=== PATIENT | female | born 1945 | race Caucasian/White ===

== ENCOUNTER → 2025-07-10 12:10 | Outpatient (REF) | payer MEDICARE, OTHER, SELFPAY | LOC: RAD 12:10 | PROVIDERS: ATTENDING PHYSICIAN Family Medicine | DX: M25.551 Pain in right hip (principal) | CPT/HCPCS: 73502 ==

== ENCOUNTER 2025-07-22 16:31 | Emergency (ER) | payer MEDICARE, OTHER, SELFPAY ==
[2025-07-22 16:41] VITALS: BP 155/80
[2025-07-22 17:01] LABS: Hematocrit 42.5 % (37.0-47.0); Hemoglobin 14.9 g/dL (12.0-16.0); Mean Corp Hgb Conc. 35.1 g/dL (33.0-37.0); Mean Corpuscular Volume 92.6 fL (81.0-99.0); Nucleated Red Blood Cells % 0 %; Platelet Count 195 10^3/uL (130-400); Red Cell Dist. Width 13.3 % (11.5-14.5)
[2025-07-22 17:14] LABS: COVID-19 Antigen Negative (Negative)
[2025-07-22 17:21] LABS: ALT (SGPT) 20 U/L (0-35); AST (SGOT) 25 U/L (14-36); Albumin 4.6 g/dl (3.5-5.0); Alkaline Phosphatase 94 U/L (38-126); Blood Urea Nitrogen 11 mg/dl (7-17); Calcium 9.4 mg/dl (8.4-10.2); Carbon Dioxide 29 mmol/L (22-30); Chloride 102 mmol/L (98-107); Glucose 105 mg/dl (70-99); Potassium 4.1 mmol/L (3.5-5.1); Sodium 137 mmol/L (135-145); Total Protein 7.5 g/dl (6.3-8.2); eGFR > 60.00
[2025-07-22 17:24] LABS: Troponin I < 0.012 ng/ml
[2025-07-22 18:11] VITALS: BP 133/72
[2025-07-22 19:00] VITALS: BP 149/96
--- NOTE | 2025-07-22 19:25 | ED.GENMED ---
History of Present Illness
<Palmira Guzman MD, Resident - Last Filed: 07/22/25 22:42>
General
Chief Complaint: Dizziness
Source: patient and family
Exam Limitations: none
Time Seen by Provider: 07/22/25 19:07
Nursing documentation reviewed up to this point in time: agreed with
History of Present Illness
History of Present Illness:
79yo F with a hx of epilepsy and hypothyroidism who presents with acute onset dizziness this am.
Pt reports that about 5 days ago she had a URI with cough and congestion. Denies any sensation of fullness in either ear or feeling of hearing being underwater/ears popped, but states that she felt that her R ear felt a bit moist and that her eyes
have been watering more than usual. Congestion has improved over past week. However, this am she woke up and felt very dizzy and lightheaded. Got out of bed and was unable to put toothpaste on her toothbrush because her vision was too blurry. Denies
any dysmetria. Denies diplopia. Throughout the day, the dizziness persisted. It is improved with sitting up and exacerbated by lying supine. It is also worsened by tilting head forward. No impact of turning head side to side. States that she feels
wobbly while walking, off balance; denies any falls. Denies n/v. Denies any changes in hearing or ear discomfort. States she had an episode like this years ago that was attributed to an ear infection. Denies LEE or palpitations. Pt states she hasn't
eaten or drank since this am.
Past History
<Palmira Guzman MD, Resident - Last Filed: 07/22/25 22:42>
Past History
ED Past Medical History: Hypercholesterolemia, Seizures and Hypothyroidism
Social History
Living: with family
Review of Systems
<Palmira Guzman MD, Resident - Last Filed: 07/22/25 22:42>
Review of Systems
Allergies reviewed?: No
All Other Systems: ROS reviewed and negative except as documented in HPI and ROS
Constitutional: Reports no symptoms
EENT: Reports runny nose
Respiratory: Reports no symptoms
Cardiac: Reports no symptoms
ABD/GI: Reports no symptoms
: Reports no symptoms
Musculoskeletal: Reports no symptoms
Skin: Reports no symptoms
Neurological: Reports dizzy
Psychiatric: Reports no symptoms
Phy Exam
<Palmira Guzman MD, Resident - Last Filed: 07/22/25 22:42>
General Physical Exam
General Presentation: mild distress
General age: appears stated age
General Skin: warm and dry
General Habitus: normal
General Mental: alert
ENT Exam
ENT Exam: EOMI and TM's normal
Eye Exam
Eye Exam: PERRL, EOMI and other (eyes red-rimmed and watery with clear tearing )
Cardiovascular Exam
Cardiovascular Exam: regular rate/rhythm and no edema
Heart Sounds: normal
Pulmonary Exam
Pulmonary Exam: no respiratory distress
Gastrointestinal Exam
Gastrointestinal Exam: non distended
Neurological Exam
Neurological Exam: alert, speech normal and other (no nystagmus, no dysmetria in bilat UE )
Skin Exam
Skin Exam: normal color and warm/dry
Psychiatric Exam
Psychiatric Exam: normal mood/affect
Course
<Palmira Guzman MD, Resident - Last Filed: 07/22/25 22:42>
Orders/Labs/Results
Orders:
Orders
07/22/25 16:33
EKG [Electrocardiogram (*1)] Urgent
Reason for Study: Vertigo / Dizzy
EKG- Treatment ONCE
07/22/25 16:47
COVID-19 Antigen Urgent
Source: Nasal Swab
INF RAPID [Influenza A+B Rapid Molecular] Urgent
BINH Source: Nasal Swab
Specimen Description:
07/22/25 16:52
CBC/With Diff [Complete Blood Count/With Diff] Urgent
CMP [Comprehensive Metabolic Panel] Urgent
Troponin I Urgent
07/22/25 19:45
Meclizine [Antivert] 12.5 mg PO NOW STA
Abnormal Lab Results
07/22/25
16:52
WBC 4.0 L 10^3/uL
(4.8-10.8)
MCH 32.5 H pg
(27.0-31.0)
MPV 10.6 H fL
(7.4-10.4)
Absolute Lymphs (auto) 1.0 L 10^3/uL
(1.2-3.4)
Monocytes % 11.8 H %
(1.7-9.3)
Glucose 105 H mg/dl
(70-99)
07/22/25 16:52
07/22/25 16:52
Vital Signs
Initial and Last Documented VS:
Initial Vital Signs
Temp Pulse Resp BP Pulse Ox
98.2 F 77 15 155/80 97
07/22/25 16:41 07/22/25 16:41 07/22/25 16:41 07/22/25 16:41 07/22/25 16:41
Last Documented Vital Signs
Temp Pulse Resp BP Pulse Ox
98.2 F 77 15 136/68 93
07/22/25 16:41 07/22/25 20:00 07/22/25 20:00 07/22/25 20:00 07/22/25 20:00
Akbarlt;Al Barney, DO - Last Filed: 07/22/25 19:52>
Orders/Labs/Results
Orders:
Orders
07/22/25 16:33
EKG [Electrocardiogram (*1)] Urgent
Reason for Study: Vertigo / Dizzy
EKG- Treatment ONCE
07/22/25 16:47
COVID-19 Antigen Urgent
Source: Nasal Swab
INF RAPID [Influenza A+B Rapid Molecular] Urgent
BINH Source: Nasal Swab
Specimen Description:
07/22/25 16:52
CBC/With Diff [Complete Blood Count/With Diff] Urgent
CMP [Comprehensive Metabolic Panel] Urgent
Troponin I Urgent
07/22/25 19:45
Meclizine [Antivert] 12.5 mg PO NOW STA
Abnormal Lab Results
07/22/25
16:52
WBC 4.0 L 10^3/uL
(4.8-10.8)
MCH 32.5 H pg
(27.0-31.0)
MPV 10.6 H fL
(7.4-10.4)
Absolute Lymphs (auto) 1.0 L 10^3/uL
(1.2-3.4)
Monocytes % 11.8 H %
(1.7-9.3)
Glucose 105 H mg/dl
(70-99)
07/22/25 16:52
07/22/25 16:52
Vital Signs
Initial and Last Documented VS:
Initial Vital Signs
Temp Pulse Resp BP Pulse Ox
98.2 F 77 15 155/80 97
07/22/25 16:41 07/22/25 16:41 07/22/25 16:41 07/22/25 16:41 07/22/25 16:41
Last Documented Vital Signs
Temp Pulse Resp BP Pulse Ox
98.2 F 77 15 136/68 93
07/22/25 16:41 07/22/25 20:00 07/22/25 20:00 07/22/25 20:00 07/22/25 20:00
<Palmira Guzman MD, Resident - Last Filed: 07/22/25 22:42>
MDM/Problems Addressed
Differential Diagnosis Includes:
Ddx:
Vestibular neuritis (in s/o recent URI)
BPPH (exacerbated by tilting head down)
Less likely:
Otitis media (no sx, TMs clear on exam)
Cardiogenic etiology (EKG, trop negative)
Central vertigo in s/o cerebellar stroke (no vertical or shifting nystagmus, no focal neuro deficits, no dysmetria)
MDM/Problems Addressed:
- Meclizine
- CT head if sx do not improve w meclizine admin
- EKG, trops
- CBC, CMP
<Palmira Guzman MD, Resident - Last Filed: 07/22/25 22:42>
*Pulse Oximetry
SaO2: 97
Oxygen Mode of Delivery: Room air
Patient hypoxic: no
*Critical Care Note
Total Time (30-74mins, 75-104mins- exclusive of procedures): Not Applicable
<Palmira Guzman MD, Resident - Last Filed: 07/22/25 22:42>
Update Note
Update Note:
10pm
Pt feeling better symptomatically s/p meclizine
Testing with laying head of bed flat/pt supine - pt states that her sx feel better than before (although mild nystagmus)
Discussed discharge w meclizine for symptomatic mgmt
ED Attending Note
<Palmira Guzman MD, Resident - Last Filed: 07/22/25 22:42>
-
Portions of this chart may have been created with voice recognition software.� Occasional wrong word or��sound alike� substitutions may have occurred due to the inherent limitations of voice recognition software.
<Al Barney, DO - Last Filed: 07/22/25 19:52>
ED Attending Note
Patient seen and examined by attending physician: Yes
I performed a history and physical exam of patient and discussed management with resident, I reviewed resident's note and agree with documented findings and plan of care.: Yes
ED Attending Note:
I have seen and evaluated the patient with a [id number] encounter. I have spoken to the resident and involved in the medical history, the physical exam, medical decision making.
Evaluation and management service: agree unless noted differently below.
Results interpretation: agree unless noted differently below.
Focused HPI: 79-year-old female presenting with intermittent dizziness that is worse with certain head movements. This was preceded by recent viral
Physical exam: Sitting up comfortably. Normal finger-nose bilaterally. Nystagmus noted when head is tilted back
Medical Decision Making: At rest, patient is free. Certain head movements reproduces the dizziness which makes BPPV more likely. Will give meclizine and reassess. If patient feeling better, she can likely continue her workup in the outpatient
setting.
Discharge Plan
Departure
Patient Disposition: Home (Routine Discharge)
Date of Disposition: 07/22/25
Time of Disposition: 22:33
Patient with high blood pressure during this ER visit?: Yes
Condition: Good
Covid-19: Not Applicable
Discharge Problem:
Vertigo
Prescriptions:
New
meclizine 12.5 mg tablet
12.5 mg PO QID PRN (Reason: dizziness) 30 Days Qty: 120 0RF
Rx Instructions:
Take 12.5mg (1 pill) every 6 hrs, as needed. OR, take 25mg every 12 hrs.
Referrals:
NONE,* [Active, Internal Medicine]
Activity Restrictions/Additional Instructions:
You were seen in the ED for dizziness/vertigo. This is likely due to either acute vestibular neuritis (following your cold) or benign paroxysmal positional vertigo. Both are benign and typically resolve with time.
We are prescribing you meclizine for management of your symptoms. You may 12.5mg of this medication every 6 hours as needed for your vertigo/dizziness symptoms. Alternatively, you may take 25mg (2 pills) every 12 hours as needed for symptoms. Do NOT
exceed 100mg/day. Please note that this medication can make you feel drowsy.
Return to the ED if you have worsening symptoms, unilateral weakness or numbness, or severe headache.
Interventions
Interventions:
*Risk Screen - Suicide Last Done: 07/22/25 16:41
*General Assessment Last Done: 07/22/25 16:41
*Neglect/Abuse Screening Last Done: 07/22/25 16:41
*ED COVID-19 Vaccine History Last Done: 07/22/25 16:41
*ED Influenza Vaccine History Last Done: 07/22/25 16:41
ED- Neurological Assessment Last Done: 07/22/25 19:45
ED- Cardiac Assessment Last Done: 07/22/25 19:45
ED Swallowing Screen Last Done: 07/22/25 19:45
Discharge Date and Time
Print Language: [facility]
[2025-07-22 20:00] VITALS: BP 136/68
[2025-07-22] MEDS: ANTIVERT 12.5 MG PO (20:05)
[2025-07-22 20:06] VITALS: BMI 27.9
[2025-07-22 21:00] VITALS: BP 123/59
[2025-07-22 22:00] VITALS: BP 120/77
== END 2025-07-22 22:55 | disposition home or self-care (01) ==
LOC: EMR 16:31
PROVIDERS: Student in an Organized Health Care Education/Training Program; EMERGENCY PHYSICIAN Student in an Organized Health Care Education/Training Program; FAMILY PHYSICIAN Family Medicine
DX: R42 Dizziness and giddiness (principal); R03.0 Elevated blood-pressure reading, without diagnosis of hypertension; E78.00 Pure hypercholesterolemia, unspecified; G40.909 Epilepsy, unspecified, not intractable, without status epilepticus; E03.9 Hypothyroidism, unspecified
CPT/HCPCS: 99284; 80053; 84484; 85025; 87502; 87811; 93005